=== PATIENT | female | born 1995 | race Caucasian/White ===

== ENCOUNTER 2022-11-12 06:50 | Day surgery (SDC) | payer MEDICAID, OTHER ==
[~2022-11-12] VITALS: Ht 134.6 cm; Wt 54.4 kg
[2022-11-12] MEDS ORDERED: MIDAZOLAM 5 MG/5 ML VIAL ONE (08:25)
[2022-11-12] MEDS ORDERED: fentaNYL citrate 0.05 MG/ML VIAL ONE (08:25)
[2022-11-12] MEDS ORDERED: MIDAZOLAM 5 MG/5 ML VIAL IV ONE (09:15)
[2022-11-12] MEDS ORDERED: fentaNYL citrate 0.05 MG/ML VIAL IVP ONE (09:15)
== END 2022-11-12 09:55 | disposition home or self-care (01) ==
LOC: MDS 06:50 → MMU 06:51 → MDS 09:55
PROVIDERS: ATTEND Internal Medicine Gastroenterology
DX: R13.10 Dysphagia, unspecified (principal); K21.9 Gastro-esophageal reflux disease without esophagitis; J45.909 Unspecified asthma, uncomplicated; E03.9 Hypothyroidism, unspecified; Z90.89 Acquired absence of other organs; Z80.0 Family history of malignant neoplasm of digestive organs; Z79.899 Other long term (current) drug therapy; Z20.822 Contact with and (suspected) exposure to COVID-19
CPT/HCPCS: 36415; 43239; 84702; 86677; 87426; J2250; J3010

== ENCOUNTER 2024-08-24 13:19 | Emergency (ER) | payer OTHER ==
[~2024-08-24] VITALS: Ht 142.2 cm; Wt 59.9 kg
[2024-08-24 13:40] VITALS: BP 111/67; PULSE 77; RESP 20; TEMP 97.6; O2SAT 100
[2024-08-24 17:00] VITALS: BP 115/70; PULSE 68; RESP 20; TEMP 98; O2SAT 100
== END 2024-08-24 18:36 | disposition home or self-care (01) ==
LOC: MED 13:19
DX: R10.13 Epigastric pain (principal); R63.0 Anorexia; J45.909 Unspecified asthma, uncomplicated; Z86.39 Personal history of other endocrine, nutritional and metabolic disease; Z98.890 Other specified postprocedural states; Z88.8 Allergy status to other drugs, medicaments and biological substances
CPT/HCPCS: 99281